=== PATIENT | female | born 1980 | race Caucasian/White ===

== ENCOUNTER 2016-08-13 05:43 | Day surgery (SDC) | payer BC, OTHER ==
[~2016-08-13] VITALS: Ht 170.2 cm; Wt 121.6 kg
--- NOTE | ~2016-08-13 | O ---
[facility] [place] [address] OPERATIVE REPORT Name: BENTLEY BOURNE Room #: 150-5 [facility]#: [id number] Admission: 08/13/16 Attend Phys: Ottoniel Aragon MD Discharge: Date of : 82 Report #: [id number] THIS REPORT FOR: //name// CC: Ottoniel Toddhanie Rhoda DATE OF SERVICE: 08/13/2016 PREOPERATIVE DIAGNOSES: 1. Right foot retained hardware. 2. Right foot sural neuritis. POSTOPERATIVE DIAGNOSES: 1. Right foot retained hardware. 2. Right foot sural neuritis. PROCEDURE: 1. Right foot hardware removal. 2. Right foot sural neurectomy. SURGEON: Ottoniel Aragon M.D. ANESTHESIA: General. ESTIMATED BLOOD LOSS: Minimal. DRAINS: None. TOURNIQUET TIME: 30 minutes. There were no complications. JAVASCRIPT ENGINEER: ART Brooks. DESCRIPTION OF PROCEDURE: The patient was brought to the operating room where she was placed under general anesthesia. Once under adequate general anesthesia, her right lower extremity was prepped and draped in sterile manner. The extremity was elevated, exsanguinated, tourniquet placed to 300 mmHg. A lateral incision to the patient's previous scar over her calcaneus extending proximally 3 cm was then made. This dissected down through soft tissue to identify the sural nerve. The sural nerve was then identified and incised proximally in the soft tissue with a tenotomy scissors. Distally, it was incised past the patient's previous scar with tenotomy scissors as well. This was then excised completely. The wound was then irrigated copiously. A guidewire for the 7.3 mm cannulated screws was then placed through the shaft of the screw in the posterior heel and a small stab incision was made to then [address] [address] OPERATIVE REPORT Name: BENTLEY BOURNE Room #: 150-5 [facility]#: [id number] Admission: 08/13/16 Attend Phys: Ottoniel Aragon MD Discharge: Date of : 82 Report #: [id number] remove the 7.3 cannulated screw with the 7.3 mm cannulated screwdriver. Once complete, the wound was irrigated copiously and closed with 2-0 Vicryl, subcutaneous tissues and raquel were used for the skin. Wounds were dressed with Xeroform, 4 x 4s, and sterile soft compressive dressing was placed. Tourniquet was let down approximately 30 minutes. Toes were pink and warm with good capillary refill. There were no complications from the procedure. The patient tolerated the procedure well and went to the recovery room without incident. By: 1317 1402 Ottoniel Aragon MD /nt
[~2016-08-13 05:43] MED LIST: IBUPROFEN 600600 M1 PO; LEXAPRO5 MG PO; PERCOCET 7.5-31 EACH PO; WELLBUTRIN XL300 MG PO
[2016-08-13 12:45] VITALS: BP 112/72
[2016-08-13] MEDS ORDERED: PERCOCET PO (13:11)
[2016-08-13 13:52] VITALS: BP 112/72
== END 2016-08-13 14:35 | disposition home or self-care (01) ==
LOC: OR 05:43 → TBA 05:43 → OR 12:00
DX: T84.84XA Pain due to internal orthopedic prosthetic devices, implants and grafts, initial encounter (principal); M21.42 Flat foot [pes planus] (acquired), left foot; G57.81 Other specified mononeuropathies of right lower limb; Z88.0 Allergy status to penicillin; Z88.8 Allergy status to other drugs, medicaments and biological substances; Y83.8 Other surgical procedures as the cause of abnormal reaction of the patient, or of later complication, without mention of misadventure at the time of the procedure; Z95.0 Presence of cardiac pacemaker; Z98.890 Other specified postprocedural states; Z90.49 Acquired absence of other specified parts of digestive tract; Z90.710 Acquired absence of both cervix and uterus; Z90.3 Acquired absence of stomach [part of]
CPT/HCPCS: 50010; 50101; 50386; 56524; 57091

== ENCOUNTER 2017-05-25 06:06 | Day surgery (SDC) | payer BC, OTHER ==
[~2017-05-25] VITALS: Ht 170.2 cm; Wt 107.7 kg
--- NOTE | ~2017-05-25 | O ---
[facility] [place] [address] OPERATIVE REPORT Name: SANDRABENTLEY Jose Room #: DEP [facility].#: [id number] Admission: 05/25/17 Attend Phys: Ottoniel Aragon MD Discharge: 05/25/17 Date of : 82 Report #: [id number] THIS REPORT FOR: //name// CC: FAM unknown Ottoniel Aragon DATE OF SERVICE: 05/25/2017 PREOPERATIVE DIAGNOSIS: Right flatfoot deformity, posterior tibial tendon dysfunction. POSTOPERATIVE DIAGNOSIS: Right flatfoot deformity, posterior tibial tendon dysfunction. PROCEDURE: Right foot subtalar arthrodesis. SURGEON: Ottoniel Aragon M.D. ANESTHESIA: General. FIRST FINDINGS: Promise Kelly. ESTIMATED BLOOD LOSS: Minimal. DRAINS: No drains. TOURNIQUET TIME: 45 minutes. DESCRIPTION OF PROCEDURE: The patient was brought to the operating room where she was placed under general anesthesia. Once under adequate general anesthesia, her right lower extremity was prepped and draped in a sterile manner. The extremity was elevated, exsanguinated, tourniquet placed to 300 mmHg. A lateral incision approximately 5 cm in length was made over the sinus tarsi. This was dissected down through soft tissue to the fat pad and extensor digitorum brevis which was then elevated off the joint, exposing the subtalar joint. Once exposed, the cartilage from the joint was then removed utilizing osteotomes, curettes and a parisa to good bleeding subchondral bone. Once this was achieved, demineralized bone matrix allograft was placed into the joint and utilizing fluoroscopy for guidance, two 7.3 mm cannulated screws were placed from anterior through the neck of the talus into the calcaneus, position and fixation was verified under fluoroscopy to be excellent. The wound was irrigated copiously and closed with 2-0 Vicryl in deep and subcutaneous tissues and raquel were used for the skin. The wounds were dressed with Xeroform, 4 x 4s, and sterile soft compressive dressing was placed. Tourniquet was let down at approximately 45 minutes. Toes were pink and warm with good capillary [facility] [address] [place] [address] OPERATIVE REPORT Name: BENTLEY FLORES Room #: DEP [facility].#: [id number] Admission: 05/25/17 Attend Phys: Ottoniel Aragon MD Discharge: 05/25/17 Date of : 82 Report #: [id number] refill. There were no complications from the procedure. The patient tolerated the procedure well and went to the recovery room without incident. <ELECTRONICALLY SIGNED> By: Ottoniel Aragon MD 06/15/17 0740 1348 1405 Ottoniel Aragon MD /nt
--- NOTE | ~2017-05-25 | EKG ---
[address] [address] ELECTROCARDIOGRAM REPORT Name: SANDRABENTLEY L Room #: [facility]#: [id number] Admission: 05/25/17 Attend Phys: Ottoniel Aragon MD Discharge: 05/25/17 Date of : 82 Report #: [id number] THIS REPORT FOR: //name// [facility] Test Date: 2017-05-25 Test Time: 10:59:09 Pat Name: BENTLEY FLORES Department: Room: 150 1 Gender: F Member Services Representative: SANJEEV : 1980 Requested By: Ottoniel Aragon Order Number: [id number] MD: Laurent Mesa Measurements Intervals Stover Rate: 60 P: 22 ME: 153 QRS: 24 QRSD: 89 T: 18 QT: 448 QTc: 448 Interpretive Statements Sinus rhythm No significant abnormality Compared to ECG 12/06/2015 12:14:45 No significant change was found Electronically Signed On 05-25-2017 17:05:50 CDT by Laurent Mesa [email or web address] <ELECTRONICALLY SIGNED> By: Laurent Mesa MD, [facility] 05/25/17 1705 1059 1059 Laurent Mesa MD, [facility] /EPI
[~2017-05-25 06:06] MED LIST changes: +AZELASTINE205.5 MCG/ NASAL; +CENTRUM SILVER1 EAC4 PO; +PERCOCET PO; +PROTONIX40 M1 PO; +VITAMIN B-12500 MCG PO
[2017-05-25 11:48] VITALS: BP 108/63
[2017-05-25] MEDS ORDERED: PERCOCET 7.5-31 EAC1 PO (13:42)
[2017-05-25] MEDS ORDERED: ASA5UEC PO (13:43)
[2017-05-25 14:11] VITALS: BP 108/63
== END 2017-05-25 15:38 | disposition home or self-care (01) ==
LOC: TBA 06:06 → OR 06:06
DX: M21.41 Flat foot [pes planus] (acquired), right foot (principal); M76.821 Posterior tibial tendinitis, right leg; K21.9 Gastro-esophageal reflux disease without esophagitis; Z98.890 Other specified postprocedural states; Z95.0 Presence of cardiac pacemaker; Z90.710 Acquired absence of both cervix and uterus; Z90.49 Acquired absence of other specified parts of digestive tract; Z88.0 Allergy status to penicillin; Z88.8 Allergy status to other drugs, medicaments and biological substances; Z79.82 Long term (current) use of aspirin; Z79.891 Long term (current) use of opiate analgesic
CPT/HCPCS: 50010; 50101; 50386; 51014; 51412; 51740; 53023; 53400; 56524; 57091; 62110; 62900; 64042; 64043